=== PATIENT | female | born 2005 | race Caucasian/White ===

== ENCOUNTER 2024-02-18 12:49 | Outpatient (CLI) | payer OTHER, SELFPAY ==
--- NOTE | ~2024-02-18 | MR_ITS ---
EXAMINATION: MR ankle LT wo/w con DATE: 02/18/2024 13:46 INDICATION: Left ankle injury TECHNIQUE: Magnetic resonance imaging (MRI) of the left ankle was performed without and with 17 mL Mu ltihance intravenous contrast. Sequences included axial, sagittal and coronal PD-weighted FSE, axial T2-weighted FS FSE, sagittal and coronal PD-weighted FS FSE, axial T1-weighted FS FSE and postcontras t axial, sagittal and coronal T1-weighted FS FSE . COMPARISON: None. FINDINGS: Medial ankle ligaments: Deep and superficial deltoid ligaments as well as the spring ligament are normal. Lateral ankle ligaments: The anterior and posterior inferior tibiofibular ligaments are normal. The calcaneofibular and cst ior talofibular ligaments are normal. There is prominent thickening of the anterior talofibular ligam ent with mild enhancement along its fibular origin but without surrounding edema to suggest acute inj ury suggesting subacute or chronic partial tear. Tendons: Achilles tendon is normal. The peroneus longus and brevis tendons are normal. The tibialis anterior a nd extensor hallucis longus and extensor digitorum longus tendons are normal. The tibialis posterior, flexor digitorum longus and flexor hallucis longus tendons are normal. Plantar fascia: Plantar aponeurosis is normal. Bones/other: Bone alignment is normal. There is mild enhancement without increased fluid signal in the tissues bet ween the navicular and a small os naviculare which could be due to either posttraumatic partial tear at the tibialis posterior insertion or more chronic os navicularis syndrome. The ossicle appears more consistent with a type I os naviculare which would favor the former. The Lisfranc ligament complex i s normal. No other abnormally enhancing lesions identified. Fluid: Physiologic amount fluid in the joint spaces. No tenosynovitis, bursitis or other abnormal fluid alexander ections. IMPRESSION: 1. Partial tear likely subacute or chronic at the volar side of the anterior talofibular ligament. 2. Mild enhancement between the navicula and a small os naviculare which could represent either mild partial tear of the tibialis posterior insertion without a discrete fluid signal intensity tear defec t or less likely a more chronic os navicularis syndrome with synchondritis. Reviewed, dictated and finalized at location A. IMPRESSION: 1. Partial tear likely subacute or chronic at the volar side of the anterior ta lofibular ligament. 2. Mild enhancement between the navicula and a small os naviculare which could represent either mild partial tear of the tibialis posterior insertion without a discrete fluid signal intensity tear defect or less likely a more chronic os navicularis syndrome with synchondritis.
== END 2024-02-18 12:50 ==
PROVIDERS: PCP Pediatrics; Visit Provider Nurse Practitioner Family
DX: S93.492A Sprain of other ligament of left ankle, initial encounter (principal); G89.29 Other chronic pain; X58.XXXA Exposure to other specified factors, initial encounter
CPT/HCPCS: 73723; A9577

== ENCOUNTER 2025-02-10 08:10 | Outpatient (CLI) | payer OTHER, SELFPAY ==
--- NOTE | ~2025-02-10 | MR_ITS ---
MRI of the right knee Clinical history: Pain Technique: Coronal proton density and proton density-weighted images, sagittal proton-density and T2 fat-sat images, and axial proton-density fat-saturated images were acquired. Findings: Anterior and posterior cruciate ligaments are intact. Medial collateral ligament and the la teral collateral ligament, as are intact. Popliteus tendon is intact. Medial and lateral menisci are intact, without evidence of tear. Articular cartilage is well preserved throughout the knee. Bone marrow signals are unremarkable. Extensor mechanism is intact. No significant joint effusion or Gamboa's cyst. Impression: No significant abnormality seen. Reviewed, dictated and finalized at location . Impression: No significant abnormality seen.
== END 2025-02-10 08:11 | disposition home or self-care (01) ==
DX: M25.561 Pain in right knee (principal)
CPT/HCPCS: 73721